=== PATIENT | female | born 2000 | race Caucasian/White ===

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

== ENCOUNTER 2020-02-27 22:44 | Emergency (ER) | payer OTHER ==
[~2020-02-27] VITALS: Ht 139.7 cm; Wt 50.9 kg
[~2020-02-27 22:44] MED LIST: MOTRIN 800800 MG/TAB PO; PERCOCET 325 MG1 TA2 PO; PRENATAL MVI; PROFERRIN ES12 MG PO
[2020-02-27 23:12] LABS: COLLECTION METHOD CLEAN CATCH
[2020-02-27 23:22] LABS: MUCOUS Present /lpf; PH 5 (5-8); URINE APPEARANCE Clear; URINE BACTERIA None Seen /hpf; URINE BILIRUBIN Negative (NEGATIVE); URINE BLOOD 1+ (NEGATIVE); URINE COLOR Red; URINE GLUCOSE 1+ (NEGATIVE); URINE KETONE Negative (NEGATIVE); URINE LEUKOCYTE ESTERASE Negative (NEGATIVE); URINE NITRATE Positive (NEGATIVE); URINE PROTEIN(semi-quant) 2+ (NEGATIVE); URINE UROBILINOGEN >=4.0 mg/dL (NEGATIVE)
[2020-02-27] MEDS ORDERED: OMNICEF 300MG300 MG PO (23:27)
[2020-02-28] VITALS: BP 122/79; PULSE 80; TEMP 99.1
== END 2020-02-28 00:01 | disposition home or self-care (01) ==
LOC: COL.ER 22:44
PROVIDERS: Emergency Medicine
DX: R30.0 Dysuria (principal); Z32.02 Encounter for pregnancy test, result negative

== ENCOUNTER 2021-12-05 22:50 | Outpatient (CLI) | payer BC, MEDICAID ==
[~2021-12-05] VITALS: Ht 139.7 cm; Wt 55.9 kg
[~2021-12-05 22:50] MED LIST changes: +OMNICEF 300MG300 MG PO
[2021-12-05 23:10] VITALS: TEMP 98
[2021-12-05 23:30] VITALS: BP 117/72; PULSE 87; TEMP 98
[2021-12-05 23:55] LABS: HEMOGLOBIN 10.8 g/dl (12.5-16.0); MEAN CELL VOLUME 85 fl (80.0-100.0); MEAN CORPUSCULAR HEMOGLOBIN 28 pg (27-31); MEAN CORPUSCULAR HGB CONC 34 g/dl (33.0-37.0); MEAN PLATELET VOLUME 9.3 fl (7.4-10.4); PLATELET COUNT 263 K/mm3 (130-400); RED BLOOD COUNT 3.81 M/mm3 (4.10-5.30)
[2021-12-05 23:59] LABS: HEMATOCRIT 32.2 % (37.0-47.0)
[2021-12-06 00:11] LABS: ALBUMIN 2.6 gm/dL (3.5-5.0); BILIRUBIN,TOTAL 0.1 mg/dL (0.2-1.2); CREATININE, serum 0.56 mg/dL (0.57-1.11); TOTAL PROTEIN 5.7 gm/dL (6.2-8.1)
[2021-12-06 00:13] LABS: BAND 5 % (0-10); EOSINOPHIL 1 % (0-4); LYMPHOCYTE 22 % (20.0-51.0); NEUTROPHILS 69 % (42.0-75.2)
[2021-12-06 00:14] LABS: ANISOCYTOSIS 1+; PLATELET ESTIMATE NORMAL (NORMAL)
--- NOTE | 2021-12-06 00:35 | NUR ---
2258- 21 yo 26.6 presents to OB c/o DFM and RUQ pain. Ambulatory and accompanied by spouse, Ronald. Escorted to room LDR4 and instructions given. Pt reports she has been having this pain for 2 weeks but has gotten worse over the last 2-3 days. Pt denies any LOF, CTX or VB. Pt reports DFM. 2305- EFM and toco applied.VSS. Afebrile. Pt denies any PIH symptoms. Rates pain 03/29. 2324- Dr. Mathew called. See physician notification. 2336- Tylenol 1000 mg po given. Gross movement auscultated and pt reports feeling good movements now. Water given. Awaiting lab. 2343- Lab at bs. 0016- Dr. Mathew called and lab results given. Orders rec'd to dc pt home and f/u with Dr. Cuellar tomorrow. 0030- Discharge instructions reviewed with pt and spouse. All questions answered. Pt demonstrates understanding. Benadryl 25 mg po given. 0032- Pt d/c home, ambulatory, accompanied by spouse.
== END 2021-12-06 00:32 | disposition home or self-care (01) ==
LOC: LDRO 22:50
PROVIDERS: Obstetrics & Gynecology
DX: O26.892 Other specified pregnancy related conditions, second trimester (principal); R10.11 Right upper quadrant pain; Z3A.26 26 weeks gestation of pregnancy

== ENCOUNTER 2022-02-28 06:12 | Inpatient (IN) | payer BC, MEDICAID ==
[2022-02-28] VITALS (40 sets, daily range): BP systolic 93–132; BP diastolic 50–91; PULSE 76–122; TEMP 97.5–98.7
[~2022-02-28] VITALS: Ht 139.7 cm; Wt 62.2 kg
--- NOTE | 2022-02-28 06:25 | NUR ---
0625 PT ARRIVED AMBULATORY ON UNIT FOR SCHEDULED IOL FOR DIAGNOSED IUGR. PT REPORTS INTERMITTENT CONTRACTIONS THROUGHOUT THE WEEKEND. DENIES LEAKING OF FLUID AND REPORTS POSITIVE MOVEMENT. PLACED IN CLEAN GOWN, ORIENTED TO LABOR ROOM, PLAN OF CARE REVIEWED. EFM TRACING CATEGORY 1 STRIP UPON ARRIVAL. CONTRACTIONS Q6.5-7MINS, PT RONDA PAINFUL CONTRACTIONS. WILL CONTINUE WITH POC PER PROTOCOL.
[2022-02-28 07:30] LABS: BASO # 0.1 K/mm3 (0.0-0.2); BASO % 0.6 % (0.0-2.0); EOS # 0.2 K/mm3 (0.0-0.7); EOS % 1.5 % (0.0-4.0); GRAN # 7.1 K/mm3 (1.4-6.5); GRAN % 72.6 % (42.2-75.2); HEMOGLOBIN 10.6 g/dl (12.5-16.0); LYMPH # 1.9 K/mm3 (1.2-3.4); LYMPH % 18.9 % (20.0-51.0); MEAN CELL VOLUME 75 fl (80.0-100.0); MEAN CORPUSCULAR HEMOGLOBIN 24 pg (27-31); MEAN CORPUSCULAR HGB CONC 32 g/dl (33.0-37.0); MEAN PLATELET VOLUME 9.8 fl (7.4-10.4); MONO # 0.5 K/mm3 (0.1-0.6); MONO % 5.5 % (1.7-9.3); PLATELET COUNT 298 K/mm3 (130-400); RED BLOOD COUNT 4.45 M/mm3 (4.10-5.30); REDCELL DISTRIBUTION WIDTH-CV 16.3 % (11.5-14.5)
[2022-02-28 07:42] LABS: HEMATOCRIT 33.2 % (37.0-47.0)
--- NOTE | 2022-02-28 08:38 | NUR ---
DR. PRATHER AT BEDSIDE, SVE /-1. CERVIX MID POSITION PER DR. PRATHER REPORT. 0838: AROM WITH BLOOD TINGED FLUID AT THIS TIME. PT TOLERATED PROCEDURE WELL. EFM TRACING CATEGORY 1 STRIP THROUGHOUT THIS ENCOUNTER. PT AFEBRILE VITAL SIGNS STABLE AT THIS TIME.
--- NOTE | 2022-02-28 09:28 | NUR ---
PT TO SITTING POSITION ON EDGE OF BED FOR EPIDURAL PLACEMENT. DIFFICULTY TRACING EFM AND TOCO DUE TO MATERNAL POSITIONING. PTS VITAL SIGNS STABLE. NAZANIN MCMAHON, AT BEDSIDE DISCUSSING PROCEDURE AND RISKS. PT AGREEABLE TO CONTINUE WITH PROCEDURE. LR BOLUS INFUSING PER PROTOCOL. 0928 TEST DOSE PER NAZANIN MCMAHON. PT TOLERATED PROCEDURE WELL. PLACED BACK IN WEDGE LEFT POSITION. EFM TRACING CATEGORY 1 STRIP.
--- NOTE | 2022-02-28 14:27 | NUR ---
1358 PT COMPLAINING OF INCREASED PRESSURE, REQUESTING SVE. SVE COMPLETE/0 PER JANICE RN. PT PLACED IN JESSI POSITION TO LABOR DOWN WHILE ALL APPROPRIATE STAFF IS NOTIFIED AND ROOM IS PREPARED FOR DELIVERY. EFM TRACING RECURRENT EARLIES AT THIS TIME. MATERNAL VITAL SIGNS STABLE. EPIDURAL WORKING APPROPRIATELY. PT DENIES PAIN BUT IS ABLE TO FEEL PRESSURE. 1410 THIS NURSE AND JANICE AT BEDSIDE TO HELP HIGHWAY WORKER PT THROUGH PUSHING. GREAT MATERNAL EFFORTS WITH PUSHING, MOVES VERTEX WELL. AUDIBLE VARIABLES INTO THE 90'S WITH CTX. DR. PRATHER IN ROUTE TO HOSPITAL. 1427 OF VIABLE FEMALE AT THIS TIME PER . PLACED ON MATERNAL ABDOMEN, CARE ASSUMED BY DELONTE BENOIT RN. CORD CLAMPED X2 AND CUT BY FOB. [address] PRATHER[address] PITOCIN BOLUS INFUSING PER PROTOCOL. MODERATE LOCHIA WITH CLOTS NOTED. DR. PRATHER BEGINS REPAIR OF PERIURETHRAL LACERATION. MATERNAL VITAL SIGNS STABLE. WILL CONTINUE WITH CARES PER PROTOCOL.
--- NOTE | 2022-02-28 17:23 | NUR ---
1700 PT ABLE TO ELEVATE AND HOLD LEGS X5 SECONDS EACH. REPORTS FULL SENSATION TO BLE. FUNDUS FIRM AT UMBILICUS. LOCHIA SCANT, NO CLOTS NOTED WITH FUNDAL MASSAGE. ASSISTED TO SITTING POSITION ON EDGE OF BED, DENIES DIZZINESS. VITAL SIGNS STABLE. PT TO RESTROOM, VOIDS 850CC BLOOD TINGED URINE. DENIES DIZZINESS OR NAUSEA WHILE ON TOILET. LOCHIA REMAINS SCANT. EPIDURAL CATHETER REMOVED PER PROTOCOL. PT TOLERATED PROCEDURE WELL. NO CONCERNS NOTED WITH REMOVAL. CLEAN GOWN, UNDERWEAR, PAD AND ROSANA CARE ALL PROVIDED FOR PATIENT. PT TOLERATING ACTIVITY WELL. WILL TRANSFER TO ROOM 219 TO CONTINUE WITH CARES PER PROTOCOL.
[2022-03-01 01:27] VITALS: BP 110/62; PULSE 81; TEMP 98
[2022-03-01 08:00] VITALS: BP 109/75; PULSE 71; TEMP 97.6
--- NOTE | 2022-03-01 10:08 | NUR ---
Initial visit; Patient thanked [employer] Staff Officer for looking in on her and offering God's blessings and congratulations for the of their daughter. [employer] Staff Officer thanked family for choosing [facility].
[2022-03-01 12:00] VITALS: BP 119/73; PULSE 79
[2022-03-01 16:20] VITALS: BP 135/60; PULSE 94; TEMP 97.7
[2022-03-01 20:15] VITALS: BP 126/75; PULSE 86; TEMP 97.8
[2022-03-02 06:41] VITALS: BP 118/72; PULSE 76; TEMP 98.2
[2022-03-02] MEDS ORDERED: IBU600 MG PO (09:35)
--- NOTE | 2022-03-02 11:30 | NUR ---
Discharge instructions and follow up care reviewed with pt and at the bedside. Both verbalized an understanding, agreed with the plan and states no questions or concerns at this time.
== END 2022-03-02 11:50 | disposition home or self-care (01) | DRG 768 ==
LOC: OB 06:12 → LDR 06:12 → OB 17:00 → LDR 19:04 → OB 03-02 11:50
PROVIDERS: ADMIT Obstetrics & Gynecology
PROC: 10E0XZZ Delivery of Products of Conception, External Approach (ICD-10-PCS; principal; 2022-02-28)
PROC: 0UQJXZZ Repair Clitoris, External Approach (ICD-10-PCS; 2022-02-28)
PROC: 10907ZC Drainage of Amniotic Fluid, Therapeutic from Products of Conception, Via Natural or Artificial Opening (ICD-10-PCS; 2022-02-28)
PROC: 3E033VJ Introduction of Other Hormone into Peripheral Vein, Percutaneous Approach (ICD-10-PCS; 2022-02-28)
DX: O36.5930 Maternal care for other known or suspected poor fetal growth, third trimester, not applicable or unspecified (principal); Z37.0 Single live birth; O99.824 Streptococcus B carrier state complicating childbirth; Z3A.39 39 weeks gestation of pregnancy; O71.89 Other specified obstetric trauma; K21.9 Gastro-esophageal reflux disease without esophagitis; O99.62 Diseases of the digestive system complicating childbirth
CPT/HCPCS: J2540; J2590; J7120